=== PATIENT | male | born 1995 | race African-American/Black ===

== ENCOUNTER 2021-11-23 09:11 | Day surgery (SDC) | payer OTHER ==
[~2021-11-23] VITALS: Ht 172.7 cm; Wt 81.2 kg
[2021-11-23] MEDS ORDERED: LR 1,000 ML IV SCH ×2 (09:20→12:40)
[2021-11-23] MEDS ORDERED: dexameTHASONE 4 MG/ML 1ML VIAL (J1100 PER 1MG) As Ordered ONE (10:47)
[2021-11-23] MEDS ORDERED: propofoL 200 MG/20 ML VIAL As Ordered ONE (10:47)
[2021-11-23] MEDS ORDERED: ONDANSETRON 4MG/2ML VIAL As Ordered ONE (10:47)
[2021-11-23] MEDS ORDERED: KETOROLAC 60MG 2ML VIAL As Ordered ONE (10:47)
[2021-11-23] MEDS ORDERED: LIDOCAINE 2% 100MG/5ML SDV (FOR ANES.) As Ordered ONE (10:47)
[2021-11-23] MEDS ORDERED: MIDAZOLAM INJ 2MG/2ML VIAL (J2250 PER 1MG) As Ordered ONE (10:48)
[2021-11-23] MEDS ORDERED: fentaNYL 100 MCG/2 ML INJECTION As Ordered ONE (10:48)
[2021-11-23] MEDS ORDERED: BUPIVACAINE HCL 0.25% 30ML VIAL As Ordered ONE (11:34)
[2021-11-23] MEDS ORDERED: BACITRACIN OINTMENT 30GM TUBE As Ordered ONE (11:34)
[2021-11-23] MEDS ORDERED: ceFAZolin 2 GM/D5W 50 ML IV BAG (J0690 PER 500MG) As Ordered ONE (11:55)
[2021-11-23] MEDS ORDERED: ACETAMINOPHEN 1000MG 100ML IV BTL (OFIRMEV) (J0131 PER 10MG) As Ordered ONE (12:32)
[2021-11-23] MEDS ORDERED: ONDANSETRON 4MG/2ML VIAL IV PRN (12:40)
[2021-11-23] MEDS ORDERED: PERC5TAB12 PO (13:21)
[2021-11-23] MEDS: fentaNYL 100 MCG/2 ML INJECTION IV PRN ×4 (13:40→14:04)
[2021-11-23] MEDS: oxyCODONE 5MG TAB PO PRN ×2 (13:41→14:09)
[2021-11-23 14:30] VITALS: BP 149/88
== END 2021-11-23 14:50 | disposition home or self-care (01) ==
LOC: M SDC 09:11
PROVIDERS: ATTEND Orthopaedic Surgery Hand Surgery
DX: G56.32 Lesion of radial nerve, left upper limb (principal)
CPT/HCPCS: 64722; J0131; J0690; J1100; J1885; J2250; J2405; J3010